=== PATIENT | male | born 2000 | race Caucasian/White ===

== ENCOUNTER 2023-06-24 10:34 | Inpatient (IN) | payer OTHER ==
[2023-06-24 11:56] LABS: HEMATOCRIT 39.1 % (42.0-52.0); HEMOGLOBIN 13.7 g/dl (13.5-17.5); MEAN CORPUSCULAR HEMOGLOBIN 30.2 pg (27.0-33.0); MEAN CORPUSCULAR VOLUME 86.1 fl (80.0-96.0); PLATELET COUNT, AUTOMATED 237 10^3/uL (150-450); RED BLOOD COUNT 4.54 10^6/uL (4.30-6.10)
[2023-06-24 12:27] LABS: ETHYL ALCOHOL (ETHANOL) < 0.003 % (0.000-0.010)
[2023-06-24 12:28] LABS: ALBUMIN 4.3 G/DL (3.2-5.2); ALKALINE PHOSPHATASE 57 U/L (46-116); ALT/SGPT 33 U/L (7.0-40); AST/SGOT 30 U/L (<34); BILIRUBIN,DIRECT 0.3 MG/DL (<0.4); BILIRUBIN,TOTAL 0.7 MG/DL (0.3-1.2); BLOOD UREA NITROGEN 15 MG/DL (9-23); CALCIUM LEVEL 9.3 MG/DL (8.5-10.1); CARBON DIOXIDE LEVEL 27 MMOL/L (20-31); CHLORIDE LEVEL 102 MMOL/L (98-107); CREATININE FOR GFR 0.83 MG/DL (0.70-1.30); GLOMERULAR FILTRATION RATE > 60.0 (>60); GLUCOSE, FASTING 83 MG/DL (60-100); POTASSIUM SERUM 3.7 MMOL/L (3.5-5.1); SALICYLATE LEVEL < 3.0 MG/DL (<30); SODIUM LEVEL 139 MMOL/L (136-145); TOTAL PROTEIN 7.4 G/DL (5.7-8.2)
[2023-06-24 13:15] LABS: AMPHETAMINES LEVEL URINE NEGATIVE (NEGATIVE); BARBITURATES URINE NEGATIVE (NEGATIVE); BENZODIAZEPINES URINE NEGATIVE (NEGATIVE); CANNABINOIDS URINE NEGATIVE (NEGATIVE); COCAINE METABOLITE URINE NEGATIVE (NEGATIVE); METHADONE URINE NEGATIVE (NEGATIVE); OPIATES URINE NEGATIVE (NEGATIVE); PHENCYCLIDINE URINE NEGATIVE (NEGATIVE)
[2023-06-24] MEDS ORDERED: MOM 30ML SUSPENSION UDC PO PRN (18:10)
[2023-06-24] MEDS ORDERED: IBUPROFEN 400MG TAB PO PRN (18:10)
[2023-06-24] MEDS ORDERED: diphenhydrAMINE 25MG CAP PO PRN (18:10)
[2023-06-24] MEDS ORDERED: traZODone 50 MG TAB PO PRN (18:10)
[2023-06-24] MEDS ORDERED: MAALOX 30 ML SUSP *UDC PO PRN (18:10)
[2023-06-24] MEDS ORDERED: ACETAMINOPHEN TAB 650MG DOSE (2X325MG) PO PRN (18:10)
[2023-06-24] MEDS ORDERED: MED REC IN PROGRESS XX SCH (19:40)
[2023-06-24] MEDS ORDERED: HOME MED LIST COMPLETE! XX SCH (19:55)
[2023-06-25 06:45] VITALS: BP 124/77; TEMP 97.5; O2SAT 99
[2023-06-25 18:17] VITALS: BP 123/71; TEMP 98.6; O2SAT 100
[2023-06-26 06:45] VITALS: BP 95/51; TEMP 97.1; O2SAT 97
[2023-06-26 18:51] VITALS: BP 124/80; TEMP 97.9; O2SAT 97
[2023-06-27 06:30] VITALS: BP 124/80; TEMP 97.9; O2SAT 99
[2023-06-27 18:33] VITALS: BP 140/80; TEMP 98.8; O2SAT 99
[2023-06-28 06:51] VITALS: BP 136/70; TEMP 98.5; O2SAT 99
== END 2023-06-28 12:00 | disposition home or self-care (01) | DRG 880 ==
LOC: M ED 10:34 → M ED INP 18:09 → M PSY 20:49
PROVIDERS: ADMIT Student in an Organized Health Care Education/Training Program; ATTEND Student in an Organized Health Care Education/Training Program
DX: F43.0 Acute stress reaction (principal); U07.1 COVID-19; R45.851 Suicidal ideations; F32.A Depression, unspecified

== ENCOUNTER 2023-07-25 09:50 | Emergency (ER) | payer OTHER ==
[~2023-07-25] VITALS: Ht 175.3 cm; Wt 86.8 kg
[2023-07-25] MEDS ORDERED: TETRACAINE 0.5% OPHTH SOLN 4ML OS ONE (11:15)
[2023-07-25] MEDS ORDERED: FLUORESCEIN OPHTH 1MG STRIP OS ONE (11:15)
[2023-07-25 13:08] VITALS: BP 124/73; TEMP 98.9; O2SAT 96
== END 2023-07-25 13:22 | disposition home or self-care (01) ==
LOC: M ED 09:50
DX: H01.004 Unspecified blepharitis left upper eyelid (principal)